=== PATIENT | female | born 1970 | race Caucasian/White ===

== ENCOUNTER 2017-05-05 16:41 | Outpatient (CLI) | payer OTHER ==
[2017-05-05 17:08] LABS: #Eosinphils 0.2 thou/uL (0.0-0.7); #Lymphocytes 1.9 thou/uL (1.20-3.40); #Monocytes 0.6 thou/uL (0.11-0.59); #Neutrophils 5.3 thou/uL (1.40-6.50); %Basophils 0.3 % (0.0-1.0); %Eosinophils 2.4 % (0.0-10.0); %Lymphocytes 23.6 % (21.0-51.0); %Monocytes 7.4 % (0.0-10.0); Hematocrit 43.3 % (36.0-47.0); Mean Platelet Volume 8.3 fL (7.4-10.4); Red Blood Cell (RBC) Count 4.45 mill/uL (4.20-5.40)
[2017-05-05 17:26] LABS: ALT (SGPT) 19 U/L (8-55); AST (SGOT) 19 U/L (5-34); Alkaline Phosphatase 55 U/L (40-150); Anion Gap 18 mmol/L (10-20); BUN (Urea Nitrogen) 8 mg/dL (7.0-18.7); Bilirubin, Direct 0.2 mg/dL (0.1-0.3); Bilirubin, Total 0.3 mg/dL (0.2-1.2); Calc. Creatinine Clearance 0 mL/min (70-130); Calcium 9.9 mg/dL (7.8-10.44); Carbon Dioxide 19 mmol/L (22-29); Chloride 105 mmol/L (98-107); Estimated GFR-MDRD 87; Globulin 3.2 g/dL (2.4-3.5); Protein, Total 7.4 g/dL (6.0-8.3)
--- NOTE | 2017-05-06 14:15 | EKG ---
Test Reason : Blood Pressure : / mmHG Vent. Rate : 072 BPM Atrial Rate : 072 BPM P-R Int : 140 ms QRS Dur : 076 ms QT Int : 392 ms P-R-T Axes : 053 083 038 degrees QTc Int : 429 ms Normal sinus rhythm Normal ECG No previous ECGs available Confirmed by DR. Chris HOPKINS ([id number]) on 05/06/2017 2:15:15 PM Referred By: JONATHAN Confirmed By:DR. Chris HOPKINS
== END 2017-05-05 16:42 | disposition home or self-care (01) ==
LOC: LABBT 16:41
PROVIDERS: ATTEND Surgery
DX: Z01.818 Encounter for other preprocedural examination (principal); K81.0 Acute cholecystitis
CPT/HCPCS: 80053; 80076; 85025; 93005; 93010

== ENCOUNTER 2017-05-06 11:08 | Day surgery (SDC) | payer OTHER ==
[2017-05-05 17:07] VITALS: BMI 22.8
[2017-05-06] MEDS ORDERED: cefOXitin 2 GM, Syringe 1 ML in Sterile Water 10 ML SLOW IVP SCH (12:15)
[2017-05-06] MEDS ORDERED: Midazolam HCl 2 mg/2 ml Vial ONE ×2 (13:31→13:56)
[2017-05-06] MEDS ORDERED: Fentanyl 100 MCG/2 ML VIAL ONE (13:31)
[2017-05-06] MEDS ORDERED: HYDROmorphone 0.5 MG/0.5 ML SYRINGE ONE ×3 (13:32→16:19)
[2017-05-06] MEDS ORDERED: Bupivacaine/Epinephrine 0.25% 30 ML VIAL ONE (13:41)
[2017-05-06] MEDS ORDERED: Ondansetron HCl/PF 4 MG/2 ML Vial ONE (14:00)
[2017-05-06] MEDS ORDERED: Ketorolac Tromethamine 30 MG/ML VIAL ONE (14:00)
[2017-05-06] MEDS ORDERED: Propofol 200 MG/20 ML VIAL ONE (14:00)
[2017-05-06] MEDS ORDERED: Dexamethasone 20 MG/5 ML VIAL ONE (14:00)
[2017-05-06] MEDS ORDERED: Lidocaine 1% PF 5 ML VIAL ONE (14:00)
[2017-05-06] MEDS ORDERED: Glycopyrrolate 0.2 MG/ML 5 ML SYRINGE ONE (14:00)
[2017-05-06] MEDS ORDERED: Morphine 4 MG/ML VIAL ONE (15:48)
--- NOTE | 2017-05-06 20:53 | OP ---
DATE OF PROCEDURE: 05/06/2017 PREOPERATIVE DIAGNOSIS: Acute cholecystitis. POSTOPERATIVE DIAGNOSIS: Acute cholecystitis. SURGEON: Austen Ritter M.D. PROCEDURE: Laparoscopic cholecystectomy. INDICATIONS: A 47-year-old female with a 5-day history of severe right upper quadrant pain to the ba ck associated with nausea. Ultrasound showed cholelithiasis. FINDINGS: Very inflamed gallbladder, very distended with hydrops, 120 mL of fluid removed from the g allbladder, large stone impacted into the lower gallbladder. PROCEDURE IN DETAIL: After informed consent was obtained, the patient was taken to the operating ashli m and given general endotracheal anesthesia, placed in the supine position. The abdomen was prepped and draped in the usual fashion. Local anesthesia infiltrated subcutaneously and deep subumbilical i ncision was performed, subcu divided sharply. The fascia grasped and 2 stay sutures of 0 Vicryl plac ed to either side of midline. Midline incised. Digital palpation revealed no local adhesions. A bl unt 10-12 mm trocar inserted. Pneumoperitoneum was created to a pressure of 15 mmHg. Under direct v ision, three 5 mm ports placed subcostally. The gallbladder was inflamed and distended. An aspirati ng needle was inserted and 120 mL of hydrops fluid removed from the gallbladder. Then, the gallbladd er was advanced superiorly. There were a lot of adhesions in the gallbladder. This was taken down u tilizing blunt and sharp dissection. The distal gallbladder had a large stone impacted. The cystic duct and artery, as well as the critical view, dissected out. These were triply ligated with Hemocli ps and divided. The gallbladder removed from its fossa utilizing electrocautery. It was placed in a n Endosac and removed from the abdomen in the sac, but had to enlarge the fascial opening as well as the skin in order to get this large gallbladder and stone out. Hemostasis was achieved utilizing yovany ctrocautery as well as Cameron powder. The abdomen thoroughly irrigated and irrigation fluid removed. Trocars and retractors were removed. The fascia closed with interrupted alqqem-uy-waeser of 0 Vicr yl. Skin closed with interrupted 4-0 Rapide. Dermabond applied. The patient tolerated the procedur e well and transferred to recovery in good condition. Sponge and needle count verified correct x2.
== END 2017-05-06 18:30 | disposition home or self-care (01) ==
LOC: SDC 11:08
PROVIDERS: ATTEND Surgery
PROC: 0FT44ZZ Resection of Gallbladder, Percutaneous Endoscopic Approach (ICD-10-PCS; principal; 2017-05-06)
DX: K80.12 Calculus of gallbladder with acute and chronic cholecystitis without obstruction (principal); K82.1 Hydrops of gallbladder; J45.909 Unspecified asthma, uncomplicated; K21.9 Gastro-esophageal reflux disease without esophagitis; D64.9 Anemia, unspecified; G40.909 Epilepsy, unspecified, not intractable, without status epilepticus; G43.909 Migraine, unspecified, not intractable, without status migrainosus; Z79.3 Long term (current) use of hormonal contraceptives; Z88.8 Allergy status to other drugs, medicaments and biological substances; Z91.011 Allergy to milk products; Z98.818 Other dental procedure status; Z98.890 Other specified postprocedural states
CPT/HCPCS: 88304; 96374; A4216; J0131; J0694; J1100; J1170; J1885; J2001; J2250; J2270; J2405; J2704; J3010

== ENCOUNTER 2017-10-20 11:05 | Outpatient (CLI) | payer OTHER | END 2017-10-20 11:06 | disposition home or self-care (01) | LOC: BICMAMMO 11:05 | PROVIDERS: ATTEND Obstetrics & Gynecology | DX: Z12.31 Encounter for screening mammogram for malignant neoplasm of breast (principal); Z80.3 Family history of malignant neoplasm of breast | CPT/HCPCS: 77063; 77067 ==

== ENCOUNTER 2021-04-22 13:58 | Outpatient (CLI) | payer BC | END 2021-04-22 13:59 | disposition home or self-care (01) | LOC: BICMAMMO 13:58 | PROVIDERS: ATTEND Obstetrics & Gynecology | DX: Z12.31 Encounter for screening mammogram for malignant neoplasm of breast (principal) | CPT/HCPCS: 77063; 77067 ==